=== PATIENT | female | born 1975 | race Asian ===

== ENCOUNTER 2018-11-02 08:47 | Emergency (ER) | payer OTHER ==
[2018-11-02 09:00] VITALS: TEMP 100; BMI 23.1
--- NOTE | 2018-11-02 09:22 | PDOC ---
History of Present Illness - General Chief Complaint: Pain Stated Complaint: PAIN Time Seen by Provider: 11/02/18 09:07 History Source: Patient Exam Limitations: No Limitations - History of Present Illness Initial Comments: 11/02/18 09:25 43-year-old female presents to the emergency room with complaints of left upper gum swelling and pain since yesterday. Patient states 3 days ago had the feeling as if food was stuck and had used a safety pin to remove it. Patient states no difficulty swallowing, headache, dizziness history of diabetes or immunosuppression and denies any recent dental work. Timing/Duration: getting worse Severity: mild Associated Symptoms: reports: denies symptoms Past History - Travel Traveled outside of the country in the last 30 days: No Close contact w/someone who was outside of country & ill: No - Past Medical History Allergies/Adverse Reactions: Allergies Allergy/AdvReac Type Severity Reaction Status Date / Time No Known Allergies Allergy Verified 11/02/18 08:55 Home Medications: Ambulatory Orders Clindamycin [Cleocin -] 300 mg PO TID #21 capsule 11/02/18 Glimepiride 4 mg PO BID 11/02/18 Ibuprofen [Motrin -] 600 mg PO TID PRN #21 tablet 11/02/18 Levothyroxine [Synthroid -] 75 mcg PO DAILY 11/02/18 Metformin HCl [Metformin HCl ER] 500 mg PO BID 11/02/18 - Suicide/Smoking/Psychosocial Hx Smoking History: Never smoked Patient Lives Alone: No Lives with/in: spouse/SO Review of Systems - Review of Systems Able to Perform ROS?: No Constitutional: No: Symptoms Reported HEENTM: Yes: Mouth Pain, Dental Problems, Mouth Swelling Respiratory: No: Symptoms reported Cardiac (ROS): No: Symptoms Reported ABD/GI: No: Symptoms Reported : No: Symptoms Reported Musculoskeletal: No: Symptoms Reported Integumentary: No: Symptoms Reported Neurological: No: Symptoms reported Endocrine: No: Symptoms Reported Hematologic/Lymphatic: No: Symptoms Reported *Physical Exam - Vital Signs Last Vital Signs Temp Pulse Resp BP Pulse Ox 100 F H 123 H 20 140/83 100 11/02/18 08:58 11/02/18 08:58 11/02/18 08:58 11/02/18 08:58 11/02/18 08:58 - Physical Exam General Appearance: Yes: Nourished, Appropriately Dressed. No: Apparent Distress HEENT: positive: EOMI, DENISE, Pharynx Normal, Other (noted abscess to luq gum. no dental decay visualized). negative: Tonsillar Erythema Neck: positive: Supple. negative: Lymphadenopathy (R), Lymphadenopathy (L) Respiratory/Chest: positive: Lungs Clear, Normal Breath Sounds. negative: Respiratory Distress, Accessory Muscle Use Cardiovascular: positive: Regular Rhythm, Tachycardia. negative: Murmur Gastrointestinal/Abdominal: positive: Soft. negative: Tenderness Integumentary: positive: Normal Color, Warm, Moist Neurologic: positive: Motor Strength 5/5 (ambulatory) Moderate Sedation - Procedure Monitoring Vital Signs: Procedure Monitoring Vital Signs Temperature 100 F H 11/02/18 08:58 Pulse Rate 123 H 11/02/18 08:58 Respiratory Rate 20 11/02/18 08:58 Blood Pressure 140/83 11/02/18 08:58 O2 Sat by Pulse Oximetry (%) 100 11/02/18 08:58 Medical Decision Making - Medical Decision Making 11/02/18 09:43 Complaint: Left upper quadrant dental abscess 2 days Exam: Low grade temp and tachycardic. Patient with obvious abscess to the left upper quadrant. Plan: Motrin ordered in ED, discharge home with the same and clindamycin. Pt to f/u w/ dentist *DC/Admit/Observation/Transfer Diagnosis at time of Disposition: Abscess of upper gum - Discharge Dispostion Disposition: HOME Condition at time of disposition: Good - Prescriptions Prescriptions: Clindamycin [Cleocin -] 300 mg PO TID #21 capsule Ibuprofen [Motrin -] 600 mg PO TID PRN #21 tablet PRN Reason: Pain - Referrals - Patient Instructions Printed Discharge Instructions: Tooth Abscess Additional Instructions: Take medications as prescribed. Please avoid chewing on that side. May apply a warm soak to the affected area. If the area pops and begins to drain you may rinse with warm salt water to remove debris - Post Discharge Activity Forms/Work/School Notes: Back to Work
[2018-11-02] MEDS ORDERED: IBUPROFEN 600 MG TABLET (FP) PO ONE ×2 (09:36→09:39)
[2018-11-02 09:39] VITALS: BP 130/75; PULSE 119
== END 2018-11-02 09:43 | disposition home or self-care (01) ==
LOC: JER 08:47
DX: K04.7 Periapical abscess without sinus (principal)
CPT/HCPCS: 99282-25